=== PATIENT | female | born 1995 | race Caucasian/White ===

== ENCOUNTER → 2020-09-29 | Outpatient (CLI) | payer BC ==
--- NOTE | 2020-09-29 11:59 | US ---
EXAMINATION TYPE: US OB >= 14 wk fetus DATE OF EXAM: 09/29/2020 COMPARISON: US 07/03/2015, CT 05/24/2012 CLINICAL HISTORY: N83.201 Ovarian CystBack pain, pelvic pain TECHNIQUE: Transabdominal (TA) GESTATIONAL AGE / DATING Physician Established: (17 weeks/3 days) EDC: 03/06/2021 Dates by First Scan: No previous this is first scan at this facility ( weeks/ days) EDC: Dates by Current Scan: (18 weeks/0 days) EDC: 03/02/2021 SURVEY IUP: Single PLACENTA: Posterior PREVIA: Low Lying NELLY: 12.4 cm Normal CERVICAL LENGTH (transabdominal: norm > 3.0cm): 3.2 cm BIOMETRY PRESENTATION: Breech LIE: Transverse with head maternal right BPD: 3.9 cm 18 weeks / 0 days HC: 15 cm 18 weeks / 1 days AC: 12.5 cm 18 weeks / 1 days FL: 2.5 cm 17 weeks / 4 days ESTIMATED WEIGHT IN GRAMS: 214 grams ESTIMATED WEIGHT IN LBS/OZ: 0 lbs. 8 oz. HC/AC: 1.2 Normal FL/AC: 20% Normal HEART RATE: 155 bpm RHYTHM: Normal Viable IUP, measurements consistent with dates. Large cystic area visualized midline/left adnexa vahid uring 7.1 x 5.8 x 9.4 cm. This area has been documented at this facility on CT and multiple ultrasoun ds since 2011. Last measurement at this facility is 4.3 x 5.0 x 4.5 cm on 07/03/2015 IMPRESSION: 1. Single viable intrauterine . 2. Enlarging cyst left adnexal mass or etiology.
== END | disposition home or self-care (01) ==
LOC: RADUSWWP 10:28
PROVIDERS: ATTEND Obstetrics & Gynecology
DX: N83.201 Unspecified ovarian cyst, right side (principal); Z91.040 Latex allergy status
CPT/HCPCS: 76805

== ENCOUNTER 2021-01-14 | Outpatient (CLI) | payer BC, OTHER ==
--- NOTE | 2021-01-15 06:31 | P.MSEPDOC ---
Presenting Problems - Arrival Data Date of Arrival on Unit: 01/14/21 Time of Arrival on Unit: 21:30 Mode of Transport: Ambulatory - Complaint OB-Reason for Admission/Chief Complaint: Other Comment: Patient arrives to triage with complaints of left leg swelling and decreased. movement for the past few hours.Patient states that she has had poor circulation and low blood pressure with this . Medical History - Information : 6 Para: 2 Term: 2 : 0 Abortions: Spontaneous or Elective: 3 Number of Living Children: 2 - Gestational Age Gestational Age by ELVA (wks/days): 33 Weeks and 0 Days Review of Systems - Review of Systems Constitutional: No problems Breast: No problems ENT: No problems Cardiovascular: No problems Respiratory: No problems Gastrointestinal: No problems Genitourinary: No problems Musculoskeletal: No problems Neurological: No problems Skin: No problems Comment: Left leg edema Vital Signs - Temperature Temperature: 96.9 F Temperature Source: Temporal Artery Scan - Pulse Right Brachial Pulse Rate: 93 Pulse Assessment Method: Automatic Cuff - Respirations Respiratory Rate: 16 Oxygen Delivery Method: Room Air O2 Sat by Pulse Oximetry: 98 - Blood Pressure Right Arm Blood Pressure: 105/62 Blood Pressure Mean: 76 Blood Pressure Source: Automatic Cuff Medical Screen Scoring (Pre) - Cervical Exam Dilation: Exam Deferred Effacement: Exam Deferred Membranes: Intact - Uterine Contractions Frequency: N/A Duration: N/A Intensity: N/A - Maternal Vital Signs Maternal Temperature: N/A Maternal Blood Pressure: N/A Signs of Preeclampsia: N/A Maternal Respirations: N/A - Maternal Trauma Maternal Trauma: N/A - Assessment - Baby A Baseline FHR: 135 Heart Rate - NICHD Category: Category I (Normal) = 0 NST: Reactive Position: N/A Station: N/A - Total Score - Baby A Total Score - Baby A: 0 - Total Score - Baby B Total Score - Baby B: 0 - Total Score - Baby C Total Score - Baby C: 0 - Level of Risk - Baby A Level of Risk - Baby A: Low (0-5) - Level of Risk - Baby B Level of Risk - Baby B: Low (0-5) - Level of Risk - Baby C Level of Risk - Baby C: Low (0-5) Physician Notification (Pre) - Physician Notified Physician Notified Date: 01/14/21 Physician Notified Time: 21:58 New Order Received: Yes - Notification Comment Comment: RN spoke with Dr. Hare regarding patient. Patient had already spoken to Dr. Hare and he advised the patient to go to the ER for evaluation regarding suspected. DVT. RN relayed that patient had a photograph of left foot from earlier that was. drastically more swollen that the right foot but since elevating her foot the swelling. had gone down considerably. Patient had no complaints. NST was reactive. Vital signs WNL.Patient transported by wheelchair back to the ER by RN for evaluation per Dr. Savage recomendations. Disposition - Disposition OB Disposition: Transfer to other dept./facility Transferred to:: ER Discharge Date: 01/14/21 Discharge Time: 22:10 I agree with the RN Medical Screening Exam: Yes Case reviewed; plan agreed upon as documented in EMR&OBIX.: Yes Diagnosis: GESTATIONAL EDEMA, THIRD TRIMESTER (Patient complaint of unilateral lower extremity swelling. heart tones are reassuring patient was therefore sent to the emergency department to rule out DVT.)
== END 2021-01-14 22:10 | disposition home or self-care (01) ==
CPT/HCPCS: 59025; G0463; 99213

== ENCOUNTER 2021-01-14 22:14 | Emergency (ER) | payer OTHER ==
[2021-01-14 22:22] VITALS: BP 91/57; PULSE 90; RESP 18; TEMP 98
[2021-01-14 22:58] LABS: Basophils % (A) 0 %; Eosinophils # (A) 0.1 k/uL (0-0.7); Eosinophils % (A) 1 %; HCT 28.2 % (34.0-46.0); HGB 9.8 gm/dL (11.4-16.0); Lymphocytes # (A) 2.3 k/uL (1.0-4.8); Lymphocytes % (A) 16 %; MCH 30.4 pg (25.0-35.0); Mean Platelet Volume 7.8; Monocytes # (A) 0.7 k/uL (0-1.0); Monocytes % (A) 5 %; Neutrophils # (A) 10.8 k/uL (1.3-7.7); Neutrophils % (A) 77 %; Platelet Count 210 k/uL (150-450); RBC 3.24 m/uL (3.80-5.40); RDW 12.9 % (11.5-15.5); WBC 14.1 k/uL (3.8-10.6)
[2021-01-14 23:09] LABS: ALT 9 U/L (4-34); AST 22 U/L (14-36); African American GFR (CKD) >90 (>60 ml/min/1.73 sqM); Albumin 3.3 g/dL (3.5-5.0); Alkaline Phosphatase 123 U/L (38-126); Anion Gap 7 mmol/L; Blood Urea Nitrogen 7 mg/dL (7-17); Calcium 8.7 mg/dL (8.4-10.2); Carbon Dioxide 20 mmol/L (22-30); Chloride 106 mmol/L (98-107); Glucose 83 mg/dL (74-99); LDH 414 U/L (313-618); Non-African American GFR(CKD) >90 (>60 ml/min/1.73 sqM); Sodium 133 mmol/L (137-145); Total Bilirubin 0.2 mg/dL (0.2-1.3); Total Protein 5.8 g/dL (6.3-8.2)
[2021-01-14 23:21] LABS: Amorphous Sediment,Urine Rare /hpf; Appearance,Urine Clear (Clear); Bacteria,Urine Few /hpf; Bilirubin,Urine Negative (Negative); Blood,Urine Negative (Negative); Color,Urine Colorless; Glucose,Urine (UA) Negative (Negative); Ketones,Urine Negative (Negative); Leukocyte Esterase,Urine Small (Negative); Nitrite,Urine Negative (Negative); PH, Urine 6.5 (5.0-8.0); Protein,Urine Negative (Negative); RBC,Urine 1 /hpf (0-5); Specific Gravity,Urine 1.006 (1.001-1.035); Squamous Epithelial Cell,Urine 2 /hpf (0-4); Urobilinogen,Urine <2.0 mg/dL (<2.0); WBC,Urine 20 /hpf (0-5)
[2021-01-14 23:28] LABS: Potassium 3.9 mmol/L (3.5-5.1)
--- NOTE | 2021-01-14 23:30 | US ---
EXAMINATION TYPE: US venous doppler duplex LE LT DATE OF EXAM: 01/14/2021 11:18 PM COMPARISON: NONE CLINICAL HISTORY: Left leg swelling. Left leg swelling x 1 day. No hx of DVT. Patient is 33 weeks pre gnant. SIDE PERFORMED: Left TECHNIQUE: The lower extremity deep venous system is examined utilizing real time linear array sonog mary ann with graded compression, doppler sonography and color-flow sonography. VESSELS IMAGED: Common Femoral Vein Deep Femoral Vein Greater Saphenous Vein * Femoral Vein Popliteal Vein Small Saphenous Vein * Proximal Calf Veins (* superficial vessels) Left Leg: Color artifact appears to be due to edema. No evidence of DVT in veins imaged at this time. IMPRESSION: No sign of deep vein thrombosis in the left leg.
[2021-01-14] MEDS ORDERED: cefTRIAXone IN SWFI 1,000 MG/10 ML SYRINGE IVP STA (23:49)
--- NOTE | 2021-01-14 23:51 | ED ---
General Adult HPI - General Chief complaint: Extremity Problem,Nontraumatic Stated complaint: DVT L leg,33 weeks Time Seen by Provider: 01/14/21 22:27 Source: patient, family Mode of arrival: wheelchair Limitations: no limitations - History of Present Illness Initial comments: 25 year-old female patient who is 33 weeks , , presents to the [facility] department for evaluation of left leg swelling. Patient states that she was sent down from the labor and delivery unit after having an NST for further evaluation for possible blood clot to the left leg. Patient states that she had pretty rapid development of swelling to the left leg earlier today. States that the swelling decreased over the afternoon. Patient states she is now having some mild swelling in the bilateral hands. She denies any chest pain or shortness of breath. Has been having some palpitations and shortness of breath. Has been evaluated by cardiology and Dr. Chu is aware. Denies history of blood clot. Denies numbness or tingling to the extremities. Denies any significant pain. - Related Data Home Medications Medication Instructions Recorded Confirmed Pnv,Calcium 72/Iron/Folic Acid 1 tab PO DAILY 11/23/01/14/21 [ Plus Tablet] Previous Rx's Medication Instructions Recorded Cephalexin [Keflex] 500 mg PO BID #6 cap 01/14/21 Allergies Allergy/AdvReac Type Severity Reaction Status Date / Time Latex, Natural Rubber Allergy Rash/Hives Verified 01/14/21 22:32 Review of Systems ROS Statement: Those systems with pertinent positive or pertinent negative responses have been documented in the HPI. ROS Other: All systems not noted in ROS Statement are negative. Past Medical History Past Medical History: No Reported History History of Any Multi-Drug Resistant Organisms: None Reported Past Surgical History: No Surgical Hx Reported Past Anesthesia/Blood Transfusion Reactions: No Reported Reaction Past Psychological History: No Psychological Hx Reported Smoking Status: Never smoker Past Alcohol Use History: None Reported Past Drug Use History: None Reported - Past Family History Mother History Unknown: Yes Family Medical History: No Reported History Father Family Medical History: Cancer Additional Family Medical History / Comment(s): melanoma General Exam Limitations: no limitations General appearance: alert, in no apparent distress, other (This is a well- developed, well-nourished adult female patient in no acute distress. Vital signs upon presentation are temperature 98.0F, pulse 90, respirations 18, blood pressure 91/57, pulse ox 98% on room air.) Eye exam: Present: normal appearance, PERRL, EOMI. Absent: scleral icterus, conjunctival injection, periorbital swelling ENT exam: Present: normal exam, normal oropharynx, mucous membranes moist Respiratory exam: Present: normal lung sounds bilaterally. Absent: respiratory distress, wheezes, rales, rhonchi, stridor Cardiovascular Exam: Present: regular rate, normal rhythm, normal heart sounds. Absent: systolic murmur, diastolic murmur, rubs, gallop, clicks GI/Abdominal exam: Present: soft, normal bowel sounds, other (Gravid abdomen). Absent: distended, tenderness, guarding, rebound, rigid Extremities exam: Present: full ROM, normal capillary refill, other (Mild swelling noted to the bilateral hands. No swelling noted in the feet or legs. Skin is pink, warm, dry. Cap refill less than 3 seconds. Pedal and posttibial pulses are 2+ and equal bilaterally). Absent: tenderness, pedal edema, joint swelling, calf tenderness Neurological exam: Present: alert, oriented X3, CN II-XII intact Psychiatric exam: Present: normal affect, normal mood Skin exam: Present: warm, dry, intact, normal color. Absent: rash Course Vital Signs 01/14/21 22:16 Temperature 98.0 F Pulse Rate 90 Respiratory 18 Rate Blood Pressure 91/57 O2 Sat by Pulse 98 Oximetry Medical Decision Making - Medical Decision Making 25-year-old female patient presents to the emergency department today for evaluation of transient left leg swelling. Physical examination revealed no swelling in the legs at this time. Neurovascular status is intact. She did have some mild swelling to the bilateral hands. Vital signs are within normal ranges. Labs reviewed and are relatively unremarkable. She did have some white blood cells and bacteria in the urine we'll treat for bacteriuria in . Ultrasound was negative for DVT to the left leg. I did discuss findings and results with her. She'll be discharged follow up with her PHARMACY MANAGER and primary care physician for recheck in 1-2 days. Return parameters were discussed in detail. She verbalizes understanding and agrees with this plan. Case discussed with my attending Dr. Caban. - Lab Data Result diagrams: 01/14/21 22:49 01/14/21 22:49 Lab Results 01/14/21 01/14/21 01/14/21 Range/Units 22:49 22:49 22:49 WBC 14.1 H (3.8-10.6) k/uL RBC 3.24 L (3.80-5.40) m/uL Hgb 9.8 L (11.4-16.0) gm/dL Hct 28.2 L (34.0-46.0) % MCV 87.0 (80.0-100.0) fL MCH 30.4 (25.0-35.0) pg MCHC 35.0 (31.0-37.0) g/dL RDW 12.9 (11.5-15.5) % Plt Count 210 (150-450) k/uL MPV 7.8 Neutrophils % 77 % Lymphocytes % 16 % Monocytes % 5 % Eosinophils % 1 % Basophils % 0 % Neutrophils # 10.8 H (1.3-7.7) k/uL Lymphocytes # 2.3 (1.0-4.8) k/uL Monocytes # 0.7 (0-1.0) k/uL Eosinophils # 0.1 (0-0.7) k/uL Basophils # 0.0 (0-0.2) k/uL Sodium 133 L (137-145) mmol/L Potassium 3.9 (3.5-5.1) mmol/L Chloride 106 (98-107) mmol/L Carbon Dioxide 20 L (22-30) mmol/L Anion Gap 7 mmol/L BUN 7 (7-17) mg/dL Creatinine 0.45 L (0.52-1.04) mg/dL Est GFR (CKD-EPI)AfAm >90 (>60 ml/min/1.73 sqM) Est GFR (CKD-EPI)NonAf >90 (>60 ml/min/1.73 sqM) Glucose 83 (74-99) mg/dL Uric Acid 3.0 L (3.7-7.4) mg/dL Calcium 8.7 (8.4-10.2) mg/dL Total Bilirubin 0.2 (0.2-1.3) mg/dL AST 22 (14-36) U/L ALT 9 (4-34) U/L Alkaline Phosphatase 123 (38-126) U/L Lactate Dehydrogenase 414 (313-618) U/L Total Protein 5.8 L (6.3-8.2) g/dL Albumin 3.3 L (3.5-5.0) g/dL Urine Color Colorless Urine Appearance Clear (Clear) Urine pH 6.5 (5.0-8.0) Ur Specific [place] 1.006 (1.001-1.035) Urine Protein Negative (Negative) Urine Glucose (UA) Negative (Negative) Urine Ketones Negative (Negative) Urine Blood Negative (Negative) Urine Nitrite Negative (Negative) Urine Bilirubin Negative (Negative) Urine Urobilinogen <2.0 (<2.0) mg/dL Ur Leukocyte Esterase Small H (Negative) Urine RBC 1 (0-5) /hpf Urine WBC 20 H (0-5) /hpf Ur Squamous Epith Cells 2 (0-4) /hpf Amorphous Sediment Rare H (None) /hpf Urine Bacteria Few H (None) /hpf - Radiology Data Radiology results: report reviewed Ultrasound left lower extremity is obtained. Report was reviewed in its entire ty. Impression by Dr. Hernandez shows no sign of deep pain thrombosis in the left leg. Disposition Clinical Impression: Leg edema, left Disposition: HOME SELF-CARE Condition: Good Instructions (If sedation given, give patient instructions): Leg Edema (ED) Additional Instructions: Take antibiotics as directed. Follow-up with the PHARMACY MANAGER as you have planned. Follow up through primary care physician for recheck in 1-2 days. Return to the emergency department for any new, worsening, or concerning symptoms Prescriptions: Cephalexin [Keflex] 500 mg PO BID #6 cap Is patient prescribed a controlled substance at d/c from ED?: No Referrals: Valentin Chu DO [Primary Care Provider] - 1-2 days Time of Disposition: 23:50
== END 2021-01-15 00:01 | disposition home or self-care (01) ==
LOC: EC 22:14
DX: O12.03 Gestational edema, third trimester (principal); Z91.040 Latex allergy status; Z3A.33 33 weeks gestation of pregnancy
CPT/HCPCS: 36415; 80053; 83615; 84550; 85025; 81001; 87086; 93971; 99284; 96374; J0696

== ENCOUNTER 2021-02-12 | Outpatient (CLI) | payer BC, OTHER | END 2021-02-12 16:22 | disposition home or self-care (01) | CPT/HCPCS: 59025; 76815; G0463; 99213 ==

== ENCOUNTER 2021-02-24 11:55 | Inpatient (IN) | payer BC, OTHER ==
--- NOTE | 2021-02-24 12:43 | P.HPOB ---
History of Present Illness H&P Date: 02/24/21 Chief Complaint: Intrauterine at term: Large 10 cm ovarian cyst with pain Patient is a 25-year-old G 6 PM 2 with 3 spontaneous abortions who arrives for induction of labor. Her course has been, complicated by a large 8 x 9 cm ovarian mass that has continued to cause pain and pressure and at this point is also causing her left lower extremity to swell on occasion. She has significant discomfort and pain and with her not feeling the baby move over the last 2 days we are planning on induction of labor early out of significant concern over the baby's well-being as well as the worsening pain from her ovarian mass. She plans to use epidural for analgesia pertinent labs include AB+ blood type, Rh antibody was negative, rubella is immune, hepatitis B surface antigen/RPR/GBS are all negative. She was dilated to 1-2 cm and 70% effaced NST currently is reactive and shows a category 1 tracing. She also is complaining of some mild difficulty in breathing mostly due to what appears to be ALLERGIES. She did however see cardiology during the for near syncopal episodes and palpitations and their workup is on the chart. Assessment intrauterine at 38 weeks 6 days plan induction of labor for significant increase in pain from her ovary and decreased movement Past Medical History Past Medical History: No Reported History History of Any Multi-Drug Resistant Organisms: None Reported Past Surgical History: No Surgical Hx Reported Past Anesthesia/Blood Transfusion Reactions: No Reported Reaction Smoking Status: Never smoker - Past Family History Mother History Unknown: Yes Family Medical History: No Reported History Father Family Medical History: Cancer Additional Family Medical History / Comment(s): melanoma Medications and Allergies Home Medications Medication Instructions Recorded Confirmed Type Pnv,Calcium 72/Iron/Folic Acid 1 tab PO DAILY 11/24/15 02/12/21 History [ Plus Tablet] Allergies Allergy/AdvReac Type Severity Reaction Status Date / Time Latex, Natural Rubber Allergy Rash/Hives Verified 02/12/21 15:01 Exam Osteopathic Statement: *. No significant issues noted on an osteopathic structural exam other than those noted in the History and Physical/Consult. - OBG Physical Exam Breast: both: normal (no masses) Abdomen: bowel sounds normal, no diffuse tenderness, no bruit present, no guarding noted, no hepatomegaly, no splenomegaly, no mass Vulva: both: normal Vagina: normal moisture, no discharge Cervix: no lesion, no discharge Uterus: normal size, normal contour Adnexa: both: normal Anus/Rectum: normal perianal skin, no rectal mass, no hemorrhoids, heme negative
[2021-02-24] MEDS: LACTATED RINGERS 1,000 ML IV SCH ×4 (12:45→20:26)
[2021-02-24] MEDS ORDERED: CARBOPROST TROMETHAMINE 250 MCG/ML 1 ML AMP IM PRN (12:54)
[2021-02-24] MEDS ORDERED: LIDOCAINE 0.5% (PF) 5 MG/ML (50 ML SDV) SQ PRN (12:54)
[2021-02-24] MEDS ORDERED: METHYLERGONOVINE 0.2 MG/ML 1 ML AMP IM PRN (12:54)
[2021-02-24] MEDS ORDERED: OXYTOCIN 10 UNIT/ML 1 ML VIAL IM PRN (12:54)
[2021-02-24] MEDS ORDERED: TERBUTALINE 1 MG/ML VIAL SQ PRN (12:54)
[2021-02-24 13:13] LABS: ALT 13 U/L (4-34); AST 20 U/L (14-36); African American GFR (CKD) >90 (>60 ml/min/1.73 sqM); Albumin 3.3 g/dL (3.5-5.0); Alkaline Phosphatase 239 U/L (38-126); Anion Gap 6 mmol/L; Blood Urea Nitrogen 6 mg/dL (7-17); Calcium 8.9 mg/dL (8.4-10.2); Carbon Dioxide 22 mmol/L (22-30); Chloride 106 mmol/L (98-107); Glucose 121 mg/dL (74-99); Non-African American GFR(CKD) >90 (>60 ml/min/1.73 sqM); Potassium 3.9 mmol/L (3.5-5.1); Sodium 134 mmol/L (137-145); Total Bilirubin 0.1 mg/dL (0.2-1.3); Total Protein 5.7 g/dL (6.3-8.2)
[2021-02-24] MEDS: OXYTOCIN 30 UNITS/500 ML NS 30 UNIT in SALINE 1 500ML.BAG IV SCH (13:16)
[2021-02-24] MEDS ORDERED: fentaNYL (PF) 50 MCG/ML 5 ML AMP ONE (17:24)
[2021-02-24] MEDS ORDERED: SODIUM CHLORIDE 0.9% 100 ML BAG ONE (17:24)
[2021-02-24] MEDS ORDERED: ROPIVACAINE 5MG/ML 20ML VIAL ONE (17:24)
[2021-02-24 17:25] LABS: Basophils % (A) 0 %; Eosinophils # (A) 0.1 k/uL (0-0.7); Eosinophils % (A) 1 %; HCT 30.5 % (34.0-46.0); HGB 10.1 gm/dL (11.4-16.0); Lymphocytes # (A) 1.4 k/uL (1.0-4.8); Lymphocytes % (A) 12 %; MCH 28.1 pg (25.0-35.0); MCHC 33.1 g/dL (31.0-37.0); Mean Platelet Volume 9.4; Monocytes # (A) 0.4 k/uL (0-1.0); Monocytes % (A) 3 %; Neutrophils # (A) 9.9 k/uL (1.3-7.7); Neutrophils % (A) 84 %; Platelet Count 213 k/uL (150-450); RBC 3.59 m/uL (3.80-5.40); RDW 14.4 % (11.5-15.5); WBC 11.9 k/uL (3.8-10.6)
[2021-02-25] MEDS ORDERED: ZOLPIDEM 5 MG TAB PO PRN (02:22)
[2021-02-25] MEDS ORDERED: diphenhydrAMINE 25 MG CAP PO PRN (02:22)
[2021-02-25] MEDS ORDERED: LANOLIN CREAM 5 GM TUBE TOPICAL PRN (02:22)
[2021-02-25] MEDS ORDERED: HYDROCORTISONE 2.5% RECTAL CREAM 30 GM TUBE RECTAL PRN (02:22)
[2021-02-25] MEDS ORDERED: diphenhydrAMINE 50 MG/ML 1 ML VIAL IVP PRN ×2 (02:22)
[2021-02-25] MEDS ORDERED: BENZOCAINE/MENTHOL SPRAY 1 GM/SPRAY AEROSOL TOPICAL PRN (02:22)
[2021-02-25] MEDS ORDERED: SIMETHICONE 80 MG CHEWABLE PO PRN (02:22)
[2021-02-25] MEDS ORDERED: diphenhydrAMINE 50 MG CAP PO PRN (02:22)
--- NOTE | 2021-02-25 02:24 | P.PROBDLV ---
Vaginal Delivery Note - . Vaginal Delivery Note: She progressed complete and pushing with spontaneous vaginal delivery of a viable male over a second-degree perineal laceration. Following delivery of the head nuchal cord 2 was noted and baby was delivered through the nuchal cord once baby was fully delivered mouth nares were bulb suctioned and baby was placed on mother's abdomen where the umbilical cord was allowed to pulsate for 40 seconds prior to clamping and cutting. Once this was completed nursery personnel was present and assumed care. Placenta was then delivered intact Pitocin was added to the IV. scores 9 and 9 at one and 5 minutes respectively weight was 7 lbs. 12 oz. Second degree laceration was then repaired with 3-0 Vicryl following 1% Xylocaine for analgesia. Both mother and baby are stable following delivery.
[2021-02-25] MEDS: OXYTOCIN 30 UNITS/500 ML NS 30 UNIT in SALINE 1 500ML.BAG IV SCH (02:56)
[2021-02-25] MEDS: IBUPROFEN 600 MG TAB PO SCH ×4 (03:23→23:29)
[2021-02-25] MEDS: ACETAMINOPHEN TAB 325 MG TAB PO PRN ×3 (05:01→20:13)
[2021-02-25] MEDS: SENNOSIDES-DOCUSATE SODIUM 1 EACH TAB PO SCH ×2 (07:54→20:13)
--- NOTE | 2021-02-25 08:46 | P.PNOBGVD ---
Subjective - Subjective Principal diagnosis: day 0 Interval history: Patient is doing very well this morning. We'll plan to continue care for now all questions are answered for her at this time. Patient reports: Reports appetite normal, Reports voiding normally, Reports pain well controlled, Reports ambulating normally [place]: doing well Objective - Latest Vital Signs Latest vital signs: Vital Signs Temp Pulse Resp BP Pulse Ox 02/25/21 08:00 98.6 F 86 20 100/61 02/25/21 04:30 99.1 F 88 16 116/57 02/25/21 03:57 99.2 F 77 16 127/63 02/25/21 03:30 81 16 128/68 02/25/21 03:15 84 16 120/65 02/25/21 02:59 96 16 115/66 02/25/21 02:45 98 16 110/64 02/25/21 02:30 99.6 F 98 16 138/92 02/24/21 12:48 98.3 F 77 18 117/62 99 Intake and Output 02/24/21 02/25/21 02/25/21 22:59 06:59 14:59 Intake Total 387 Output Total 700 Balance -700 387 Intake: Intake, IV Titration 387 Amount Oxytocin 30 Units/500 ml 387 Ns 30 unit In Saline 1 500ml.bag @ Per Protocol IV .Q0M [facility] Rx#:[id number] Output: Urine 700 Other: # Voids 1 1 # Bowel Movements 0 - Exam Lungs: bilateral: normal Chest: Normal S1, Normal S2 Extremities: Present: normal Abdomen: Present: normal appearance, soft Uterus: Present: normal, firm - Labs Labs: Abnormal Lab Results - Last 24 Hours (Table) 02/24/21 02/24/21 Range/Units 12:37 12:37 WBC 11.9 H (3.8-10.6) k/uL RBC 3.59 L (3.80-5.40) m/uL Hgb 10.1 L (11.4-16.0) gm/dL Hct 30.5 L (34.0-46.0) % Neutrophils # 9.9 H (1.3-7.7) k/uL Sodium 134 L (137-145) mmol/L BUN 6 L (7-17) mg/dL Creatinine 0.40 L (0.52-1.04) mg/dL Glucose 121 H (74-99) mg/dL Total Bilirubin 0.1 L (0.2-1.3) mg/dL Alkaline Phosphatase 239 H (38-126) U/L Total Protein 5.7 L (6.3-8.2) g/dL Albumin 3.3 L (3.5-5.0) g/dL
[2021-02-26] MEDS: ACETAMINOPHEN TAB 325 MG TAB PO PRN ×2 (02:33→09:28)
[2021-02-26] MEDS: IBUPROFEN 600 MG TAB PO SCH ×2 (05:56→10:06)
[2021-02-26 06:28] LABS: Basophils % (A) 0 %; Eosinophils # (A) 0.2 k/uL (0-0.7); Eosinophils % (A) 1 %; HCT 27.2 % (34.0-46.0); HGB 9.3 gm/dL (11.4-16.0); Lymphocytes # (A) 2.6 k/uL (1.0-4.8); Lymphocytes % (A) 16 %; MCH 28.8 pg (25.0-35.0); MCHC 34.1 g/dL (31.0-37.0); MCV 84.4 fL (80.0-100.0); Monocytes # (A) 0.6 k/uL (0-1.0); Monocytes % (A) 4 %; Neutrophils # (A) 12.3 k/uL (1.3-7.7); Neutrophils % (A) 77 %; Platelet Count 172 k/uL (150-450); RBC 3.22 m/uL (3.80-5.40); RDW 14.2 % (11.5-15.5); WBC 15.9 k/uL (3.8-10.6)
--- NOTE | 2021-02-26 07:58 | P.DS ---
Providers Date of admission: 02/24/21 11:55 Expected date of discharge: 02/26/21 Attending physician: Valentin Chu Primary care physician: Stated None Hospital Course: Carole is doing very well this morning day 1. She is ambulating, voiding and she is tolerating her diet. She voices no complaints and is requesting discharge home today. She does not need any pain medication. Her vital signs are stable and she is afebrile. Heart regular, lungs clear, extremities without pain. Abdomen soft and uterus is firm. Lochia is reported to be light. Assessment day 1. Plan discharged home follow up with me in 4 weeks as we are going to reevaluate her ovarian cyst at that time. Patient Condition at Discharge: Good Plan - Discharge Summary New Discharge Prescriptions: No Action Pnv,Calcium 72/Iron/Folic Acid [ Plus Tablet] 1 tab PO DAILY MDD 1 Discharge Medication List Pnv,Calcium 72/Iron/Folic Acid [ Plus Tablet] 1 tab PO DAILY MDD 1 11/24/15 [History] Follow up Appointment(s)/Referral(s): Valentin Chu DO [Doctor of Osteopathic Medicine] - 4 Weeks Activity/Diet/Wound Care/Special Instructions: Review lifting, limit stairs and driving, and pelvic rest. If any high temperatures, heavy bleeding, or severe pain call my office Discharge Disposition: HOME SELF-CARE
[2021-02-26 08:03] VITALS: BP 104/66; PULSE 69; RESP 16; TEMP 98.2
[2021-02-26] MEDS: SENNOSIDES-DOCUSATE SODIUM 1 EACH TAB PO SCH (08:03)
== END 2021-02-26 10:07 | disposition home or self-care (01) | DRG 807 ==
LOC: 4FBP 11:55
PROVIDERS: ADMIT Obstetrics & Gynecology; ATTEND Obstetrics & Gynecology
PROC: 10E0XZZ Delivery of Products of Conception, External Approach (ICD-10-PCS; principal; 2021-02-25)
PROC: 0KQM0ZZ Repair Perineum Muscle, Open Approach (ICD-10-PCS; 2021-02-25)
DX: O34.83 Maternal care for other abnormalities of pelvic organs, third trimester (principal); Z37.0 Single live birth; O70.1 Second degree perineal laceration during delivery; N83.209 Unspecified ovarian cyst, unspecified side; Z3A.38 38 weeks gestation of pregnancy; Z80.8 Family history of malignant neoplasm of other organs or systems
CPT/HCPCS: 80053; 85025; 86850; 86900; 86901

== ENCOUNTER 2021-03-31 15:54 | Day surgery (SDC) | payer BC, OTHER ==
[2021-03-31] MEDS ORDERED: LACTATED RINGERS 1,000 ML IV ONE (16:24)
[2021-03-31] MEDS ORDERED: PROPOFOL 10 MG/ML 20 ML VIAL IV ONE (16:32)
[2021-03-31] MEDS ORDERED: ONDANSETRON 4 MG/2 ML VIAL ONE (16:32)
[2021-03-31] MEDS ORDERED: ROCURONIUM 10 MG/ML (5 ML VIAL) IV ONE (16:32)
[2021-03-31] MEDS ORDERED: SODIUM CHLORIDE 0.9% 100 ML BAG ONE (16:32)
[2021-03-31] MEDS ORDERED: LIDOCAINE 1% INJ 10MG/ML (20 ML MDV) ONE (16:32)
[2021-03-31] MEDS ORDERED: SUCCINYLCHOLINE CHLORIDE 100 MG/5 ML SYR IV ONE (16:32)
[2021-03-31] MEDS ORDERED: DEXAMETHASONE SOD PHOSPHATE 10 MG/ML 1 ML VIAL ONE (16:32)
[2021-03-31] MEDS ORDERED: GLYCOPYRROLATE 0.2 MG/ML 2 ML VIAL ONE (16:32)
[2021-03-31] MEDS ORDERED: fentaNYL (PF) 50 MCG/ML 2 ML AMP ONE (16:32)
[2021-03-31] MEDS ORDERED: KETOROLAC 15 MG/ML 1 ML VIAL ONE (16:32)
[2021-03-31] MEDS ORDERED: NEOSTIGMINE 1 MG/ML 10 ML VIAL ONE (16:32)
[2021-03-31] MEDS ORDERED: MIDAZOLAM 2 MG/2 ML VIAL ONE (16:32)
[2021-03-31] MEDS ORDERED: ceFAZolin 1,000 MG VIAL ONE (16:32)
[2021-03-31] MEDS ORDERED: BUPIVACAINE (PF) 0.25% 30 ML VIAL SQ ONE ×2 (17:09)
--- NOTE | 2021-03-31 17:51 | P.OP ---
Date of Procedure: 03/31/21 Preoperative Diagnosis: Pelvic pain/left ovarian mass Postoperative Diagnosis: Same with left hydrosalpinx torsed 5 Procedure(s) Performed: Diagnostic laparoscopy with untorse Ovary and ultimately left salpingectomy Anesthesia: BILLY Surgeon: Valentin Chu Estimated Blood Loss (ml): 10 IV fluids (ml): 750 Urine output (ml): 30 Pathology: other (Left fallopian tube) Condition: stable Disposition: same day Operative Findings: Normal appendix, uterus left ovary right ovary and right fallopian tube. Hydrosalpinx of the left fallopian tube torsed 5 times and removed Description of Procedure: Patient was taken to the operating suite where a general anesthetic was found be adequate. She was prepped and draped in the normal sterile fashion and placed in dorsal lithotomy position. Initially a speculum was inserted in the vagina and into lip surgically identified and grasped with single-tooth tenaculum. Uterine manipulator was then inserted without difficulty. Kiran cath was then placed through drain the bladder of urine and other incidents removed from the vagina. Attention was then turned to the abdominal portion procedure and gloves were changed. Initially 2 mL of quarter percent Marcaine was injected periumbilically and through this injected anesthetic a 5 mm skin incision was made. Through this incision under direct visualization with an optical trocar and sleeve the camera was inserted. Once peritoneal placement was assured gas allowed to fully insufflate the abdomen and patient's placement steep Trendelenburg position. Mass was then visualized and a second port and sleeve were then inserted through a 5 mm skin incision 3 centers above the pubic symphysis. It is noted that this is a hydrosalpinx and not part of the ovary the ovary on the left side is normal. As it was twisted 5 times it was untwisted and was noted to be still dusky and purple in color and with it being present for such a long time frame it was removed. A LigaSure was then used to cauterize the proximal fallopian tube area was cauterized and then transected in approximately 3 bites. Excellent hemostasis along the pedicle is then noted. Following tube was then moved to the pelvis and a J-hook cautery was used to create an opening in the fallopian tube and the fallopian tube was drained of clear fluid. It was then placed in the gallbladder bag and removed. Once this completed suction irrigation of the pelvis was done excellent hemostasis was noted and the excess fluid from the fallopian tube was removed. At this time instruments are removed from the abdomen and 5 deep breaths are provided. 4-0 Vicryl was then used to close incision subcuticularly and the remaining lidocaine was used to injected around the incisions. Instruments are then removed from the vagina. Sponge, lap, needle counts were all correct 2. Patient was then taken to the recovery room in stable and satisfactory condition. Plan - Discharge Summary New Discharge Prescriptions: New Ibuprofen [Motrin] 600 mg PO Q6HR PRN #30 tab PRN Reason: Pain HYDROcodone/APAP 5-325MG [Dearing 5-325] 1 tab PO Q4HR PRN #30 tab PRN Reason: Pain No Action Pnv,Calcium 72/Iron/Folic Acid [ Plus Tablet] 1 tab PO DAILY MDD 1 Discharge Medication List Pnv,Calcium 72/Iron/Folic Acid [ Plus Tablet] 1 tab PO DAILY MDD 1 11/24/15 [History] HYDROcodone/APAP 5-325MG [Dearing 5-325] 1 tab PO Q4HR PRN #30 tab 03/31/21 [Rx] Ibuprofen [Motrin] 600 mg PO Q6HR PRN #30 tab 03/31/21 [Rx] Follow up Appointment(s)/Referral(s): Valentin Chu DO [Primary Care Provider] - 1 Week Activity/Diet/Wound Care/Special Instructions: Lifting, limit stairs and driving, and pelvic rest. If any high temperatures, heavy bleeding, or severe pain call my office Discharge Disposition: HOME SELF-CARE
[2021-03-31 17:57] VITALS: RESP 16; TEMP 97.1
[2021-03-31] MEDS ORDERED: HYDROcodone/APAP 5-325MG 1 EACH TAB ONE (18:45)
[2021-03-31] MEDS ORDERED: HYDROcodone/APAP 5-325MG 1 EACH TAB PO ONE (18:48)
[2021-03-31 19:01] VITALS: BP 118/75; PULSE 61
== END 2021-03-31 19:37 | disposition home or self-care (01) ==
LOC: OR 15:54
PROVIDERS: ATTEND Obstetrics & Gynecology
DX: N83.9 Noninflammatory disorder of ovary, fallopian tube and broad ligament, unspecified (principal); N70.11 Chronic salpingitis; N83.519 Torsion of ovary and ovarian pedicle, unspecified side; Z79.1 Long term (current) use of non-steroidal anti-inflammatories (NSAID); Z79.891 Long term (current) use of opiate analgesic; Z79.899 Other long term (current) drug therapy
CPT/HCPCS: 81025; 58661; J2250; J1100; J2710; J2405; J0690; J2001; J3010; J1885; J0330; J2704; 88304